=== PATIENT | male | born 1960 | race Caucasian/White ===

== ENCOUNTER 2019-09-30 18:20 | Inpatient (IN) | payer BC ==
[2019-09-30] MEDS ORDERED: ASPIRIN 81 MG PO STA (18:39)
[2019-09-30] MEDS ORDERED: NITROGLYCERIN OINT 1 INCH/GM PACKET TOPICAL STA (18:39)
[2019-09-30 18:54] LABS: Basophils % (A) 0 %; Eosinophils # (A) 0.1 k/uL (0-0.7); Eosinophils % (A) 1 %; HGB 15.2 gm/dL (13.0-17.5); Lymphocytes # (A) 1.6 k/uL (1.0-4.8); Lymphocytes % (A) 16 %; MCH 31.5 pg (25.0-35.0); MCHC 33.7 g/dL (31.0-37.0); MCV 93.6 fL (80.0-100.0); Mean Platelet Volume 7.1; Monocytes # (A) 0.7 k/uL (0-1.0); Monocytes % (A) 7 %; Neutrophils # (A) 7.6 k/uL (1.3-7.7); Neutrophils % (A) 75 %; Platelet Count 224 k/uL (150-450); RBC 4.81 m/uL (4.30-5.90); RDW 12.7 % (11.5-15.5); WBC 10.1 k/uL (3.8-10.6)
[2019-09-30 19:03] LABS: INR 0.9 (<1.2); Prothrombin Time 9.5 sec (9.0-12.0)
[2019-09-30 19:04] LABS: Partial Thromboplastin Time 24.4 sec (22.0-30.0)
--- NOTE | 2019-09-30 19:07 | XR ---
EXAMINATION TYPE: XR chest 2V DATE OF EXAM: 09/30/2019 COMPARISON: NONE HISTORY: Chest pain TECHNIQUE: FINDINGS: Heart and mediastinum are normal. Lungs are clear. Diaphragm is normal. There are chest arnie ds. Bony thorax is intact. IMPRESSION: Normal chest.
[2019-09-30 19:08] LABS: ALT 35 U/L (4-49); AST 23 U/L (17-59); African American GFR (CKD) >90 (>60 ml/min/1.73 sqM); Albumin 4.6 g/dL (3.5-5.0); Alkaline Phosphatase 100 U/L (38-126); Anion Gap 11 mmol/L; Blood Urea Nitrogen 17 mg/dL (9-20); Calcium 9.4 mg/dL (8.4-10.2); Carbon Dioxide 22 mmol/L (22-30); Chloride 106 mmol/L (98-107); Glucose 143 mg/dL (74-99); Magnesium 2.2 mg/dL (1.6-2.3); Non-African American GFR(CKD) 80 (>60 ml/min/1.73 sqM); Potassium 3.8 mmol/L (3.5-5.1); Sodium 139 mmol/L (137-145); Total Bilirubin 0.3 mg/dL (0.2-1.3); Total Protein 7.6 g/dL (6.3-8.2)
--- NOTE | 2019-09-30 19:15 | ED ---
General Adult HPI - General Chief complaint: Chest Pain Stated complaint: Chest pain Time Seen by Provider: 09/30/19 18:25 Source: patient, RN notes reviewed, old records reviewed Mode of arrival: wheelchair Limitations: no limitations - History of Present Illness Initial comments: This is a 58-year-old male who presents emergency Department complaining of chest pain today about 45 minutes prior to arrival. Patient states he had no episode a few days ago pre-significant chest pain shortness of breath. Patient states today's episode made him short of breath and very nauseated and a little sweaty. Patient states the pain is still there now but is very minimal. Patient denies any shortness of breath currently. Patient denies any radiation of the pain. Patient denies any recent fever chills or cough. Patient denies any palpitation. Patient denies any abdominal pain patient denies nausea vomiting diarrhea. Patient denies headache patient denies numbness weakness. - Related Data Home Medications Medication Instructions Recorded Confirmed No Known Home Medications 09/30/19 09/30/19 Allergies Allergy/AdvReac Type Severity Reaction Status Date / Time No Known Allergies Allergy Verified 09/30/19 19:23 Review of Systems ROS Statement: Those systems with pertinent positive or pertinent negative responses have been documented in the HPI. ROS Other: All systems not noted in ROS Statement are negative. Past Medical History Past Medical History: No Reported History History of Any Multi-Drug Resistant Organisms: None Reported Past Surgical History: No Surgical Hx Reported Past Psychological History: No Psychological Hx Reported Smoking Status: Never smoker Past Alcohol Use History: Occasional Past Drug Use History: None Reported General Exam - General Exam Comments Initial Comments: GENERAL: Patient is well-developed and well-nourished. Patient is nontoxic and well- hydrated and is in mild distress. ENT: Neck is soft and supple. No significant lymphadenopathy is noted. Oropharynx is clear. Moist mucous membranes. Neck has full range of motion without eliciting any pain. EYES: The sclera were anicteric and conjunctiva were pink and moist. Extraocular movements were intact and pupils were equal round and reactive to light. Eyelids were unremarkable. PULMONARY: Unlabored respirations. Good breath sounds bilaterally. No audible rales rhonchi or wheezing was noted. CARDIOVASCULAR: There is a regular rate and rhythm without any murmurs gallops or rubs. ABDOMEN: Soft and nontender with normal bowel sounds. SKIN: Skin is clear with no lesions or rashes and otherwise unremarkable. NEUROLOGIC: Patient is alert and oriented x3. Cranial nerves II through XII are grossly intact. Motor and sensory are also intact. Normal speech, volume and content. Symmetrical smile. MUSCULOSKELETAL: Normal extremities with adequate strength and full range of motion. LYMPHATICS: No significant lymphadenopathy is noted PSYCHIATRIC: Normal psychiatric evaluation. Limitations: no limitations Course Vital Signs 09/30/19 18:24 Temperature 98.3 F Pulse Rate 76 Respiratory 18 Rate Blood Pressure 221/108 O2 Sat by Pulse 97 Oximetry Medical Decision Making - Medical Decision Making EKG shows normal sinus rhythm at 81 bpm MO interval is 170 [place] is 98 QT interval 392 QTC is 455. Patient's EKG shows no ST segment elevation or depression. Chest x-ray shows no acute normalities. Patient's chest pain completely resolved after aspirin and Nitropaste. Patient was started on heparin for the unstable angina picture. I spoke with the [facility] hospitalist and they accepted the admission admitted the patient I wrote admitting orders and I consult cardiology continued as per aspirin and Nitropaste on the floor. - Lab Data Result diagrams: 09/30/19 18:44 09/30/19 18:44 Lab Results 09/30/19 09/30/19 09/30/19 Range/Units 18:44 18:44 18:44 WBC 10.1 (3.8-10.6) k/uL RBC 4.81 (4.30-5.90) m/uL Hgb 15.2 (13.0-17.5) gm/dL Hct 45.0 (39.0-53.0) % MCV 93.6 (80.0-100.0) fL MCH 31.5 (25.0-35.0) pg MCHC 33.7 (31.0-37.0) g/dL RDW 12.7 (11.5-15.5) % Plt Count 224 (150-450) k/uL Neutrophils % 75 % Lymphocytes % 16 % Monocytes % 7 % Eosinophils % 1 % Basophils % 0 % Neutrophils # 7.6 (1.3-7.7) k/uL Lymphocytes # 1.6 (1.0-4.8) k/uL Monocytes # 0.7 (0-1.0) k/uL Eosinophils # 0.1 (0-0.7) k/uL Basophils # 0.0 (0-0.2) k/uL PT 9.5 (9.0-12.0) sec INR 0.9 (<1.2) APTT 24.4 (22.0-30.0) sec Sodium 139 (137-145) mmol/L Potassium 3.8 (3.5-5.1) mmol/L Chloride 106 (98-107) mmol/L Carbon Dioxide 22 (22-30) mmol/L Anion Gap 11 mmol/L BUN 17 (9-20) mg/dL Creatinine 1.04 (0.66-1.25) mg/dL Est GFR (CKD-EPI)AfAm >90 (>60 ml/min/1.73 sqM) Est GFR (CKD-EPI)NonAf 80 (>60 ml/min/1.73 sqM) Glucose 143 H (74-99) mg/dL Calcium 9.4 (8.4-10.2) mg/dL Magnesium 2.2 (1.6-2.3) mg/dL Total Bilirubin 0.3 (0.2-1.3) mg/dL AST 23 (17-59) U/L ALT 35 (4-49) U/L Alkaline Phosphatase 100 (38-126) U/L Troponin I (0.000-0.034) ng/mL Total Protein 7.6 (6.3-8.2) g/dL Albumin 4.6 (3.5-5.0) g/dL 09/30/19 Range/Units 18:44 WBC (3.8-10.6) k/uL RBC (4.30-5.90) m/uL Hgb (13.0-17.5) gm/dL Hct (39.0-53.0) % MCV (80.0-100.0) fL MCH (25.0-35.0) pg MCHC (31.0-37.0) g/dL RDW (11.5-15.5) % Plt Count (150-450) k/uL Neutrophils % % Lymphocytes % % Monocytes % % Eosinophils % % Basophils % % Neutrophils # (1.3-7.7) k/uL Lymphocytes # (1.0-4.8) k/uL Monocytes # (0-1.0) k/uL Eosinophils # (0-0.7) k/uL Basophils # (0-0.2) k/uL PT (9.0-12.0) sec INR (<1.2) APTT (22.0-30.0) sec Sodium (137-145) mmol/L Potassium (3.5-5.1) mmol/L Chloride (98-107) mmol/L Carbon Dioxide (22-30) mmol/L Anion Gap mmol/L BUN (9-20) mg/dL Creatinine (0.66-1.25) mg/dL Est GFR (CKD-EPI)AfAm (>60 ml/min/1.73 sqM) Est GFR (CKD-EPI)NonAf (>60 ml/min/1.73 sqM) Glucose (74-99) mg/dL Calcium (8.4-10.2) mg/dL Magnesium (1.6-2.3) mg/dL Total Bilirubin (0.2-1.3) mg/dL AST (17-59) U/L ALT (4-49) U/L Alkaline Phosphatase (38-126) U/L Troponin I 0.024 (0.000-0.034) ng/mL Total Protein (6.3-8.2) g/dL Albumin (3.5-5.0) g/dL Critical Care Time Critical Care Time: Yes Total Critical Care Time: 35 Disposition Clinical Impression: Unstable angina pectoris Disposition: ADMITTED IP TO THIS [facility] Referrals: None,Stated [Primary Care Provider] - 1-2 days Time of Disposition: 19:50
[2019-09-30] MEDS ORDERED: HEPARIN SODIUM,PORCINE 5,000 UNIT/ML 1 ML VIAL IV ONE (19:48)
[2019-09-30] MEDS ORDERED: hydrALAZINE HCL 20 MG/ML 1 ML VIAL IVP STA (19:49)
[2019-09-30] MEDS ORDERED: NITROGLYCERIN SL TABS 0.4 MG TAB SUBLINGUAL PRN (19:51)
[2019-09-30] MEDS: HEPARIN SOD,PORK IN 0.45% NACL 25,000 UNIT in 0.45% NACL 1 250ML.BAG IV SCH (20:29)
[2019-10-01] MEDS: NITROGLYCERIN OINT 1 INCH/GM PACKET TOPICAL SCH ×4 (00:12→21:04)
[2019-10-01 04:17] LABS: Cholesterol 242 mg/dL (<200); HDL Cholesterol 57 mg/dL (40-60); LDL Cholesterol,Calculated 146 mg/dL (0-99); Triglycerides 193 mg/dL (<150)
[2019-10-01] MEDS ORDERED: HEPARIN SODIUM,PORCINE 5,000 UNIT/ML 1 ML VIAL IV STA (07:47)
[2019-10-01] MEDS ORDERED: HEPARIN SODIUM,PORCINE 5,000 UNIT/ML 1 ML VIAL IV PRN (07:49)
[2019-10-01] MEDS ORDERED: ALPRAZolam 0.25 MG TAB PO PRN (07:57)
[2019-10-01] MEDS ORDERED: ASPIRIN 325 MG TAB PO STA (07:57)
[2019-10-01] MEDS ORDERED: ATORVASTATIN 80 MG TAB PO STA (07:57)
[2019-10-01] MEDS ORDERED: ALPRAZolam 0.5 MG TAB PO PRN (07:57)
[2019-10-01] MEDS ORDERED: NITROGLYCERIN SL TABS 0.4 MG TAB SUBLINGUAL PRN ×2 (07:57→10:35)
[2019-10-01] MEDS: ASPIRIN 325 MG TAB PO SCH (08:02)
[2019-10-01] MEDS ORDERED: IV FLUID CONTINUATION 450 ML IV ONE (09:05)
[2019-10-01] MEDS ORDERED: fentaNYL (PF) 50 MCG/ML 2 ML AMP ONE (09:26)
[2019-10-01] MEDS ORDERED: fentaNYL (PF) 50 MCG/ML 2 ML AMP IV ONE (09:39)
[2019-10-01] MEDS ORDERED: MIDAZOLAM 2 MG/2 ML VIAL IV ONE (09:39)
[2019-10-01] MEDS ORDERED: LIDOCAINE 1% INJ 10MG/ML (20 ML MDV) SQ ONE (09:42)
[2019-10-01] MEDS ORDERED: CLOPIDOGREL 75 MG TAB ONE (09:58)
[2019-10-01] MEDS ORDERED: CLOPIDOGREL 75 MG TAB PO ONE (10:03)
[2019-10-01] MEDS ORDERED: BIVALIRUDIN BOLUS 250 MG/50 ML IV ONE (10:03)
[2019-10-01] MEDS ORDERED: BIVALIRUDIN 250 MG in SODIUM CHLORIDE 0.9% 50 ML IV ONE (10:04)
[2019-10-01] MEDS ORDERED: ENALAPRILAT 1.25 MG/ML 1 ML VIAL ONE (10:16)
[2019-10-01] MEDS ORDERED: hydrALAZINE HCL 20 MG/ML 1 ML VIAL ONE (10:16)
[2019-10-01] MEDS ORDERED: ENALAPRILAT 1.25 MG/ML 1 ML VIAL IV ONE (10:19)
[2019-10-01] MEDS ORDERED: hydrALAZINE HCL 20 MG/ML 1 ML VIAL IV ONE (10:19)
[2019-10-01] MEDS ORDERED: NITROGLYCERIN 1000MCG/10ML SYRINGE INTRACORON ONE (10:20)
[2019-10-01] MEDS ORDERED: IOPAMIDOL-370 100ML BTL INJ ONE ×2 (10:22→10:29)
[2019-10-01] MEDS ORDERED: ATROPINE SULFATE 0.1 MG/ML 10ML SYRINGE IV PRN (10:35)
[2019-10-01] MEDS ORDERED: ZOLPIDEM 5 MG TAB PO PRN (10:35)
[2019-10-01] MEDS ORDERED: RX INFO: IV CONTRAST WAS GIVEN 1 EACH MISC MISCELLANE PRN (10:35)
[2019-10-01] MEDS ORDERED: MAG HYDROX/AL HYDROX/SIMETH 30 ML CUP PO PRN (10:35)
[2019-10-01] MEDS ORDERED: SODIUM CHLORIDE 0.9% 1,000 ML IV SCH (10:45)
--- NOTE | 2019-10-01 11:44 | P.HPIM ---
History of Present Illness 58-year-old pleasant male came in with complaints of chest pain in the precordial area pressure-like sensation along with nausea and lightheadedness and diaphoresis. Patient 5 pain is moderate severity. Patient is found to have highly elevated troponins along with some ST-T wave changes in inferior leads. Patient was started on heparin subsequently taken to Board [facility] patient received a stent to RCA. Patient still has mild chest pain which is pressure-like sensation denied any shortness of breath at this time patient denied any cough chest x-ray within normal limits patient is not a smoker doesn't take any medications at home Review of Systems REVIEW OF SYSTEMS: CONSTITUTIONAL: No fever, no malaise, no fatigue. HEENT: No recent visual problems or hearing problems. Denied any sore throat. CARDIOVASCULAR: No orthopnea, PND, no palpitations, no syncope. PULMONARY: No shortness of breath, no cough, no hemoptysis. GASTROINTESTINAL: No diarrhea, no nausea, no vomiting, no abdominal pain. NEUROLOGICAL: No headaches, no weakness, no numbness. HEMATOLOGICAL: Denies any bleeding or petechiae. GENITOURINARY: Denies any burning micturition, frequency, or urgency. MUSCULOSKELETAL/RHEUMATOLOGICAL: Denies any joint pain, swelling, or any muscle pain. ENDOCRINE: Denies any polyuria or polydipsia. The rest of the 14-point review of systems is negative. Past Medical History Past Medical History: No Reported History History of Any Multi-Drug Resistant Organisms: None Reported Past Surgical History: No Surgical Hx Reported Past Anesthesia/Blood Transfusion Reactions: No Reported Reaction Past Psychological History: No Psychological Hx Reported Smoking Status: Never smoker Past Alcohol Use History: Occasional Past Drug Use History: None Reported - Past Family History Father Family Medical History: Coronary Artery Disease (CAD), Hyperlipidemia, Hypertension Additional Family Medical History / Comment(s): CABG, from heart attack in his 70s Mother Family Medical History: Congestive Heart Failure (CHF), COPD, Hyperlipidemia, Hypertension Medications and Allergies Home Medications Medication Instructions Recorded Confirmed Type No Known Home Medications 09/30/19 09/30/19 History Allergies Allergy/AdvReac Type Severity Reaction Status Date / Time No Known Allergies Allergy Verified 09/30/19 19:23 Physical Exam Vitals: Vital Signs Temp Pulse Pulse Resp BP BP Pulse Ox 10/01/19 11:05 65 16 170/75 10/01/19 10:50 70 16 169/78 98 10/01/19 10:35 98 F 75 16 191/88 96 10/01/19 08:00 98.4 F 64 16 171/85 97 10/01/19 04:32 97.9 F 54 L 16 142/78 98 10/01/19 00:00 98.1 F 61 16 188/97 98 09/30/19 23:00 67 18 158/88 96 09/30/19 21:00 76 18 161/92 96 09/30/19 20:30 72 18 160/93 95 09/30/19 19:27 77 18 191/104 97 09/30/19 18:24 98.3 F 76 18 221/108 97 Intake and Output 09/30/19 10/01/19 10/01/19 22:59 06:59 14:59 Intake Total 249.667 Balance 249.667 Intake: IV 138 Intake, IV Titration 111.667 Amount Heparin Sod,Pork in 0.45% 111.667 NaCl 25,000 unit In 0.45 % NaCl 1 250ml.bag @ 8. 479 UNITS/KG/HR 10 mls/hr IV .Q24H [facility] Rx#: [id number] Other: # Voids 1 Weight 117.934 kg 116.8 kg PHYSICAL EXAMINATION: GENERAL: The patient is alert and oriented x3, not in any acute distress. Well developed, well nourished. HEENT: Pupils are round and equally reacting to light. EOMI. No scleral icterus. No conjunctival pallor. Normocephalic, atraumatic. No pharyngeal erythema. No thyromegaly. CARDIOVASCULAR: S1 and S2 present. No murmurs, rubs, or gallops. PULMONARY: Chest is clear to auscultation, no wheezing or crackles. ABDOMEN: Soft, nontender, nondistended, normoactive bowel sounds. No palpable organomegaly. MUSCULOSKELETAL: No joint swelling or deformity. EXTREMITIES: No cyanosis, clubbing, or pedal edema. NEUROLOGICAL: Gross neurological examination did not reveal any focal deficits. SKIN: No rashes. Results CBC & Chem 7: 09/30/19 18:44 09/30/19 18:44 Labs: Abnormal Lab Results - Last 24 Hours (Table) 09/30/19 09/30/19 09/30/19 Range/Units 18:44 18:44 22:06 APTT (22.0-30.0) sec Glucose 143 H (74-99) mg/dL Troponin I 0.192 H* (0.000-0.034) ng/mL Triglycerides 193 H (<150) mg/dL Cholesterol 242 H (<200) mg/dL LDL Cholesterol, Calc 146 H (0-99) mg/dL 10/01/19 10/01/19 Range/Units 00:29 05:58 APTT 31.6 H (22.0-30.0) sec Glucose (74-99) mg/dL Troponin I 0.246 H* (0.000-0.034) ng/mL Triglycerides (<150) mg/dL Cholesterol (<200) mg/dL LDL Cholesterol, Calc (0-99) mg/dL Thrombosis Risk Factor Assmnt - Choose All That Apply Any of the Below Risk Factors Present?: Yes Each Factor Represents 1 point: Age 41-60 years, Obesity (BMI >25) Thrombosis Risk Factor Assessment Total Risk Factor Score: 2 Thrombosis Risk Factor Assessment Level: Low Risk Assessment and Plan Plan: acute inferior wall non-ST elevation microinfarction: Patient is status post cardiac catheterization and stenting to RCA, continue dual antiplatelet therapy statin beta devon if he can tolerate and lisinopril echocardiogram is pending -hyperlipidemia -mild sinus bradycardia because of inferior wall [place]
[2019-10-01] MEDS: SODIUM CHLORIDE 0.9% 1,000 ML in EMPTY BAG 1 BAG IV ONE ×2 (12:07→12:16)
[2019-10-01 12:21] VITALS: BMI 34.9
--- NOTE | 2019-10-01 12:31 | CONS ---
CONSULTATION CHIEF COMPLAINT: Chest pain. Ronal is a 58-year-old gentleman with no significant past medical history who presented to hospital with precordial chest pressure. It is moderate intensity, precordial, radiated to his neck and back. Has had similar symptoms 5 days ago. His pain has gradually resolved after coming to hospital. EKG reveals nonspecific ST-T wave changes. Troponins have come back mildly elevated. Given the patient's clinical presentation and elevated troponins, I advised him to undergo cardiac catheterization for further evaluation. I have explained to him risks, benefits and alternatives. He understood and accepted. PAST MEDICAL HISTORY: Negative for hypertension, diabetes and dyslipidemia. MEDICATIONS: None. ALLERGIES: None. FAMILY HISTORY: Significant for premature coronary artery disease. SOCIAL HISTORY: Negative for current smoking, EtOH abuse, or drug abuse. REVIEW OF SYSTEMS: HEENT is unremarkable. CARDIAC: As described above. RESPIRATORY: As described above. GI negative. GENITOURINARY negative. ALLERGY none. Immunology: None. Skin negative. Musculoskeletal negative. Endocrine: Negative. CONSTITUTIONAL negative. ONCOLOGICAL negative. Rest of the system review is not relevant. EXAM: Comfortable at rest. Vital signs are stable. There is no jugular venous distention. Carotid upstroke is normal. There is no bruit. Chest exam reveals good air entry bilaterally. Heart exam reveals first and second heart sounds. No gallop. No murmur. No rub. Abdomen is soft, nontender. Exam of extremities did not reveal any edema. Peripheral pulses are felt. LABS: Show that the hemoglobin is normal at 15.2, platelet count is 224. Potassium is 3.8 creatinine is 1. Troponin is elevated at 0.1 and 0.2. LDL cholesterol is 146. ASSESSMENT: Acute non ST-segment elevation myocardial infarction. PLAN: Patient will undergo cardiac catheterization for further evaluation. MMODL / IJN: [id number] /
--- NOTE | 2019-10-01 13:11 | CC ---
CARDIAC CATHETERIZATION REPORT INDICATION: Acute non ST-segment elevation [place]. PROCEDURE NOTE: After obtaining informed consent, left heart catheterization and coronary angiogram were performed via the right femoral artery using standard Arpan catheters the patient tolerated the procedure well without any obvious immediate complication. Patient received moderate conscious sedation. Total sedation time was 12 minute. FINDINGS: HEMODYNAMICS: Left ventricular end-diastolic pressure is 8 to 12 mm. There is no significant gradient across the aortic valve. LEFT VENTRICULOGRAM: Not performed. ANGIOGRAPHIC DATA: LEFT MAIN CORONARY ARTERY is a normal-sized vessel and is free of stenosis. Divides into left anterior descending coronary artery and circumflex coronary artery. LAD and its branches, CIRCUMFLEX CORONARY ARTERY and its branches are free of significant stenosis. RIGHT CORONARY ARTERY is a large dominant vessel that shows a focal 95% stenosis in the mid portion. CONCLUSION: Severe single-vessel coronary artery disease. PLAN: Patient will undergo angioplasty with stent placement of the same. MMODL / IJN: [id number] /
--- NOTE | 2019-10-01 13:41 | PTCA ---
PERCUTANEOUSTRANS CORORONARY ANGIOGRAPHY DATE OF SERVICE: October 01, 2019 PERFORMING PHYSICIAN: eYmi Millard MD. PROCEDURE PERFORMED: Successful stenting of the mid right coronary artery using 3.5 x 18 mm Xience JILL which was post dilated using 4 mm balloon with an excellent angiographic result and reduction of stenosis from 90% to 0%. INDICATION: This is a 58-year-old gentleman with hypertension and dyslipidemia who presented to the hospital with chest discomfort and ruled in for acute [id number] myocardial infarction. He underwent a heart catheterization by Dr. Barrientos and was found to have critical disease involving the mid right coronary artery. The decision was made toward percutaneous coronary intervention. APPROACH: Right common femoral artery. COMPLICATION: None. LEVEL OF SEDATION: Moderate with sedation length of 17 minutes. PROCEDURE DESCRIPTION: Please refer to the diagnostic heart catheterization was performed by Dr. Barrientos earlier today. Anticoagulation was initiated using Angiomax. JR4 guide was used to engage the right coronary artery. Subsequently I did wire the RCA using a run-through wire. Direct stenting of the lesion in the RCA was performed using 3.5 x 18 mm Xience JILL where the stent was positioned under fluoroscopy guidance and deployed under 14 atmospheres for 20 seconds. Post dilatation of the lesion was performed using the 4.0 x 12 mm NC balloon which was inflated under 16 atmospheres and 18 atmospheres inside the stent. The following angiogram showed excellent angiographic results and the procedure was completed without any complication. POSTPROCEDURE MANAGEMENT: 1. Dual anti-platelet therapy. 2. Risk factor modifications. 3. Blood pressure control. 4. Follow up with the patient. MMODL / IJN: [id number] /
[2019-10-01] MEDS: HEPARIN SOD,PORK IN 0.45% NACL 25,000 UNIT in 0.45% NACL 1 250ML.BAG IV SCH (20:10)
[2019-10-01] MEDS ORDERED: ACETAMINOPHEN TAB 325 MG TAB PO PRN (20:18)
[2019-10-01] MEDS ORDERED: ATORVASTATIN 80 MG TAB PO SCH (21:00)
[2019-10-01] MEDS: METOPROLOL TARTRATE 25 MG TAB PO SCH (21:04)
[2019-10-02 04:57] VITALS: RESP 16
[2019-10-02] MEDS: NITROGLYCERIN OINT 1 INCH/GM PACKET TOPICAL SCH ×2 (05:47→06:46)
[2019-10-02] MEDS: METOPROLOL TARTRATE 25 MG TAB PO SCH (07:33)
[2019-10-02] MEDS: ASPIRIN 325 MG TAB PO SCH (07:33)
[2019-10-02 07:40] VITALS: PULSE 62
[2019-10-02 08:22] LABS: African American GFR (CKD) >90 (>60 ml/min/1.73 sqM); Non-African American GFR(CKD) >90 (>60 ml/min/1.73 sqM)
[2019-10-02] MEDS ORDERED: lisinopriL 10 MG TAB PO SCH (09:00)
[2019-10-02] MEDS ORDERED: CLOPIDOGREL 75 MG TAB PO SCH (10:00)
--- NOTE | 2019-10-02 11:10 | P.PN ---
Subjective Progress Note Date: 10/02/19 This is a 58-year-old gentleman who was admitted on August 30 evening with complaints of chest pain and unstable angina/non-STEMI. Patient had a cardiac catheterization and was found to have 95% stenosis of the RCA and had stent placement yesterday. Patient has been stable. Denies any chest pain or shortne ss of breath. His groin is soft without any hematoma. Lungs are clear. Heart is regular. Patient is tolerating activity well. Patient could be discharged home from [facility] standpoint. Follow-up with Dr. Barrientos in one week. Objective - Vital Signs Vital signs: Vital Signs Temp 98 F 10/02/19 07:36 Pulse 62 10/02/19 07:36 Resp 16 10/02/19 07:36 BP 186/112 10/02/19 07:36 Pulse Ox 98 10/02/19 07:36 Intake & Output 10/01/19 10/02/19 10/02/19 18:59 06:59 18:59 Intake Total 494.667 750 120 Output Total 500 Balance 494.667 250 120 Weight 116.8 kg 104.5 kg Intake: IV 138 Intake, IV Titration 111.667 750 Amount Heparin Sod,Pork in 0.45% 111.667 NaCl 25,000 unit In 0.45 % NaCl 1 250ml.bag @ 8. 479 UNITS/KG/HR 10 mls/hr IV .Q24H [facility] Rx#: [id number] Sodium Chloride 0.9% 1, 750 000 ml @ 75 mls/hr IV . [id number] [facility] Rx#:[id number] Oral 245 120 Output: Urine 500 Other: Voiding Method Toilet # Voids 1 1 - Exam GENERAL EXAM: Patient is alert and oriented and doesn't appear to be in any acute distress HEENT: Normocephalic. Normal reaction of pupils, equal size, normal range of extraocular motion. No erythema or exudates in the throat. NECK: No masses, no nuchal rigidity. CHEST: No chest wall deformity. LUNGS: Equal air entry with no crackles or wheeze. HEART: S1 and S2 normal with no audible mumurs or gallops. Regular rhythm, f emorals equal on both sides.. ABDOMEN: No hepatosplenomegaly, normal bowel sounds, no guarding or rigidity. SKIN: No rashes CENTRAL NERVOUS SYSTEM: No focal deficits. EXTREMITIES: No cyanosis, clubbing or edema. PUNCTURE SITE: The right groin is soft without any hematoma - Labs CBC & Chem 7: 09/30/19 18:44 10/02/19 07:39 Assessment and Plan (1) NSTEMI (non-ST elevated myocardial infarction) Current Visit: Yes Status: Acute Code(s): I21.4 - NON-ST ELEVATION (NSTEMI) MYOCARDIAL INFARCTION SNOMED Code(s): 65846487 Plan: Patient could be discharged home. Continue current medical therapy including dual antiplatelet agents, Lipitor, beta blockers and nitrates. Follow-up with Dr. Barrientos as an outpatient
[2019-10-02 11:28] VITALS: BP 168/85; TEMP 98.1
--- NOTE | 2019-10-02 22:42 | DS ---
DISCHARGE SUMMARY DATE OF SERVICE: 10/02/2019. FINAL DIAGNOSES: 1. Acute inferior old non ST elevation myocardial infarction status post cardiac catheterization and stenting of the RCA. 2. Hyperlipidemia. 3. Mild sinus bradycardia. 4. Troponin 0.46. 5. Hyperlipidemia. DISCHARGE DISPOSITION: The patient will be discharged in stable condition with guarded prognosis. Cardiology cleared the patient. HISTORY: This 58-year-old gentleman with a past medical history of multiple medical problems was admitted with acute ST-segment elevation myocardial infarction, inferior VT. The patient underwent cardiac cath and stenting of the RCA. The cholesterol was elevated 242 and LDL was 146. Recommended outpatient followup. Otherwise, troponin 0.246. On exam, vitals are stable. Cardiovascular S1 S2. Abdomen soft. Nervous system: No focal deficits. Discharge diet is cardiac. Activity limited until follow up. Follow up with Lynn Gonzales in one week. Follow up with Dr. Barrientos in 1 week. DISCHARGE MEDICATIONS: 1. Ecotrin 320 mg p.o. daily. 2. Lipitor 80 mg q.h.s. 3. Lopressor 25 mg p.o. b.i.d. 4. Nitrostat 0.4 sublingual p.r.n. 5. Plavix 75 mg p.o. daily. 6. Zestril 10 mg p.o. daily. MMODL / TRIPN: [id number] /
== END 2019-10-02 12:55 | disposition home or self-care (01) | DRG 247 ==
LOC: EC 18:20 → 1SOBS 19:51 → 3SCARD 23:15 → OBSVTOIN 10-01 14:50
PROVIDERS: ADMIT Hospitalist; ATTEND Hospitalist
PROC: 027034Z Dilation of Coronary Artery, One Artery with Drug-eluting Intraluminal Device, Percutaneous Approach (ICD-10-PCS; principal; 2019-10-01 10:05)
PROC: B2111ZZ Fluoroscopy of Multiple Coronary Arteries using Low Osmolar Contrast (ICD-10-PCS; 2019-10-01 10:05)
PROC: 4A023N7 Measurement of Cardiac Sampling and Pressure, Left Heart, Percutaneous Approach (ICD-10-PCS; 2019-10-01 10:05)
DX: I21.4 Non-ST elevation (NSTEMI) myocardial infarction (principal); I25.10 Atherosclerotic heart disease of native coronary artery without angina pectoris; Z11.59 Encounter for screening for other viral diseases; E66.9 Obesity, unspecified; R00.1 Bradycardia, unspecified; I10 Essential (primary) hypertension; E78.5 Hyperlipidemia, unspecified; Z68.34 Body mass index [BMI] 34.0-34.9, adult; Z71.3 Dietary counseling and surveillance; Z82.49 Family history of ischemic heart disease and other diseases of the circulatory system; Z83.438 Family history of other disorder of lipoprotein metabolism and other lipidemia; Z82.5 Family history of asthma and other chronic lower respiratory diseases
CPT/HCPCS: 36415; 71046; 80053; 80061; 82565; 83735; 84484; 85025; 85610; 85730; 93005; 93458; 96365; 96366; 96375; 96376; 99291